=== PATIENT | female | born 1975 | race American Indian/Alaskan Native ===

== ENCOUNTER 2021-04-20 21:56 | Emergency (ER) | payer SELFPAY ==
[2021-04-20 23:14] LABS: Basophils # (Auto) 0.1 K/mm3 (0.0-0.1); Basophils % (Auto) 0.5 % (0.0-1.8); Eosinophils # (Auto) 0.1 K/mm3 (0.0-0.4); Hematocrit 30.3 % (30.3-42.9); Hemoglobin 9.1 gm/dl (10.1-14.3); Lymphocytes % (Auto) 17.1 % (13.4-35.0); Mean Corpuscular HGB Conc 30 % (30-34); Monocytes # (Auto) 0.8 K/mm3 (0.0-0.8); Monocytes % (Auto) 6.9 % (0.0-7.3); Platelet Count 379 K/mm3 (140-440); Red Blood Count 5.17 M/mm3 (3.65-5.03)
[2021-04-20 23:15] LABS: Mean Corpuscular Volume 59 fl (79-97)
[2021-04-20 23:38] LABS: Alanine Aminotransferase 38 units/L (7-56); Albumin 3.9 g/dL (3.9-5); Blood Urea Nitrogen 11 mg/dL (7-17); Calcium 8.7 mg/dL (8.4-10.2); Hemolysis Index 2
[2021-04-20 23:54] LABS: BUN/Creatinine Ratio 18
[2021-04-21] MEDS ORDERED: SODIUM CHLORIDE 0.9% 1000 ML 1,000 ML IV ONE (02:56)
--- NOTE | 2021-04-21 03:07 | Emergency Department Report ---
HPI - General Chief Complaint: Chest Pain Time Seen by Provider: 04/21/21 02:45 - HPI HPI: This is a 45-year-old -[place] female presents to the emergency department from home with a complaint of some palpitations, shakiness, and some generalized weakness that started this evening and woke her from sleep. She says that she felt like her heart is racing fast. She drank some water and says that it slowly started coming down again. She denies any chest pain, fever, lower extremity swelling, nausea, vomiting or diaphoresis. She did not take anything for her symptoms prior to presentation today. She has a past medical history of hypertension. She has been compliant with her amlodipine but ran out of her triamterene. She does not have a primary care physician. She denies any tobacco or illicit drug use. No recent travel or sick contacts at home. ED Past Medical Hx - Past Medical History Previous Medical History?: Yes Hx Hypertension: Yes - Surgical History Past Surgical History?: No - Social History Smoking Status: Never Smoker Substance Use Type: None - Medications Home Medications: Home Medications Medication Instructions Recorded Confirmed Last Taken Type Triamterene 50 mg PO QDAY #30 capsule 04/21/21 Unknown Rx ED Review of Systems ROS: Stated complaint: HEART RACING,SHAKY,DIZZY Other details as noted in HPI Comment: All other systems reviewed and negative Constitutional: weakness. denies: chills, fever Eyes: denies: eye pain, vision change ENT: denies: ear pain, throat pain Respiratory: denies: cough, shortness of breath Cardiovascular: palpitations. denies: chest pain, edema Gastrointestinal: denies: abdominal pain, vomiting Genitourinary: denies: dysuria, discharge Musculoskeletal: denies: back pain, arthralgia Skin: denies: rash, lesions Neurological: denies: headache, numbness Physical Exam - Physical Exam Physical Exam: GENERAL: The patient is well-developed well-nourished. HENT: Normocephalic. Atraumatic. Patient has moist mucous membranes. EYES: Extraocular motions are intact.. NECK: Supple. Trachea is midline. CHEST/LUNGS: Clear to auscultation. There is no respiratory distress noted. HEART/CARDIOVASCULAR: Regular. There is mild to moderate tachycardia. There is no murmur. ABDOMEN: Abdomen is soft, nontender. Patient has normal bowel sounds. There is no abdominal distention. SKIN: Skin is warm and dry. NEURO: The patient is awake, alert, and oriented. The patient is cooperative. The patient has no focal neurologic deficits. Normal speech. MUSCULOSKELETAL: There is no tenderness or deformity. There is no limitation range of motion. ED Medical Decision Making - Lab Data Result diagrams: 04/20/21 22:48 04/20/21 22:48 Lab Results 04/20/21 04/20/21 04/21/21 Range/Units 22:48 22:48 01:46 WBC 11.5 H (4.5-11.0) K/mm3 RBC 5.17 H (3.65-5.03) M/mm3 Hgb 9.1 L (10.1-14.3) gm/dl Hct 30.3 (30.3-42.9) % MCV 59 L (79-97) fl MCH 18 L (28-32) pg MCHC 30 (30-34) % RDW 21.0 H (13.2-15.2) % Plt Count 379 (140-440) K/mm3 Lymph % (Auto) 17.1 (13.4-35.0) % [place] % (Auto) 6.9 (0.0-7.3) % Eos % (Auto) 1.0 (0.0-4.3) % Baso % (Auto) 0.5 (0.0-1.8) % Lymph # (Auto) 2.0 (1.2-5.4) K/mm3 [place] # (Auto) 0.8 (0.0-0.8) K/mm3 Eos # (Auto) 0.1 (0.0-0.4) K/mm3 Baso # (Auto) 0.1 (0.0-0.1) K/mm3 Seg Neutrophils % 74.5 H (40.0-70.0) % Seg Neutrophils # 8.6 H (1.8-7.7) K/mm3 D-Dimer (0-234) ng/mlDDU Sodium 137 (137-145) mmol/L Potassium 4.0 (3.6-5.0) mmol/L Chloride 100.2 (98-107) mmol/L Carbon Dioxide 25 (22-30) mmol/L Anion Gap 16 mmol/L BUN 11 (7-17) mg/dL Creatinine 0.6 (0.6-1.2) mg/dL Estimated GFR > 60 ml/min BUN/Creatinine Ratio 18 % Glucose 148 H (65-100) mg/dL Calcium 8.7 (8.4-10.2) mg/dL Total Bilirubin 0.20 (0.1-1.2) mg/dL AST 29 (5-40) units/L ALT 38 (7-56) units/L Alkaline Phosphatase 84 (35-129) units/L Troponin T < 0.010 < 0.010 (0.00-0.029) ng/mL Total Protein 7.4 (6.3-8.2) g/dL Albumin 3.9 (3.9-5) g/dL Albumin/Globulin Ratio 1.1 % TSH (0.270-4.200) mlU/mL HCG, Qual (Negative) 04/21/21 04/21/21 04/21/21 Range/Units 01:46 03:02 03:02 WBC (4.5-11.0) K/mm3 RBC (3.65-5.03) M/mm3 Hgb (10.1-14.3) gm/dl Hct (30.3-42.9) % MCV (79-97) fl MCH (28-32) pg MCHC (30-34) % RDW (13.2-15.2) % Plt Count (140-440) K/mm3 Lymph % (Auto) (13.4-35.0) % [place] % (Auto) (0.0-7.3) % Eos % (Auto) (0.0-4.3) % Baso % (Auto) (0.0-1.8) % Lymph # (Auto) (1.2-5.4) K/mm3 [place] # (Auto) (0.0-0.8) K/mm3 Eos # (Auto) (0.0-0.4) K/mm3 Baso # (Auto) (0.0-0.1) K/mm3 Seg Neutrophils % (40.0-70.0) % Seg Neutrophils # (1.8-7.7) K/mm3 D-Dimer 381.02 H (0-234) ng/mlDDU Sodium (137-145) mmol/L Potassium (3.6-5.0) mmol/L Chloride (98-107) mmol/L Carbon Dioxide (22-30) mmol/L Anion Gap mmol/L BUN (7-17) mg/dL Creatinine (0.6-1.2) mg/dL Estimated GFR ml/min BUN/Creatinine Ratio % Glucose (65-100) mg/dL Calcium (8.4-10.2) mg/dL Total Bilirubin (0.1-1.2) mg/dL AST (5-40) units/L ALT (7-56) units/L Alkaline Phosphatase (35-129) units/L Troponin T (0.00-0.029) ng/mL Total Protein (6.3-8.2) g/dL Albumin (3.9-5) g/dL Albumin/Globulin Ratio % TSH 3.270 (0.270-4.200) mlU/mL HCG, Qual Negative (Negative) - EKG Data -: EKG Interpreted by Ga EKG shows normal: sinus rhythm (PACs), axis, intervals, QRS complexes, ST-T waves Rate: tachycardia (127 bpm) - EKG Data When compared to previous EKG there are: previous EKG unavailable Interpretation: other (Sinus rhythm at 127 bpm, PACs, no ST elevation HI.) - Radiology Data Radiology results: report reviewed CTA CHEST WITH IV CONTRAST INDICATION / CLINICAL INFORMATION: Chest palpitations, Elevated D-dimer. 'S TECHNIQUE: Axial CT images were obtained through the chest after injection of 100 cc Omnipaque 350 milligrams percent IV contrast. 3 plane MIP and/or 3D reconstructions were produced. All CT scans at this location are performed using CT dose reduction for ALARA by means of automated exposure control. COMPARISON: None available. FINDINGS: PULMONARY ARTERIES: Poor contrast enhancement of the pulmonary artery without obvious pulm onary embolic disease THORACIC AORTA: No significant abnormality. HEART: No significant abnormality. CORONARY ARTERIES: No significant calcification. PLEURA: No pleural effusion. No pneumothorax. LYMPH NODES: No significant adenopathy. LUNGS: No acute air space or interstitial disease. ADDITIONAL FI NDINGS: None. UPPER ABDOMEN: No acute findings. SKELETAL STRUCTURES: No significant osseous abnormality. IMPRESSION: 1. No CT evidence for pulmonary embolism. Please see comments 2. No acute findings. - Medical Decision Making This patient presents to the emergency department with a complaint of palpitations, some lightheadedness and generalized weakness. On examination she does have some mild to moderate tachycardia, but otherwise heart and lung sounds are normal to auscultation. She does not appear in any respiratory or acute distress. EKG shows some PACs and tachycardia, but there is no morphology consistent with ST elevation myocardial infarction. Chest x-ray did not show any pneumonia, pleural effusions, pneumothorax, widened mediastinum, or any other acute process. The patient's labs have been mostly unremarkable including CBC, metabolic panel, negative troponins x2, normal thyroid function, and the patient is not . She did have a slightly elevated and equivocal D-dimer level. For this reason the patient had a CT angiography of the chest that did not show any pulmonary embolism, dissection, or any other acute process. She was given some IV fluid resuscitation and a dose of IV analgesia. The blood pressure improved, and the tachycardia resolved, and the patient's symptoms have also currently resolved. Patient appears safe for discharge home at this time. She was given a prescription for her second blood pressure medication. She was given outpatient referrals for primary care and cardiology. She will return to the emergency department with any worsening of her symptoms or with any acute distress. Critical Care Time: No Critical care attestation.: If time is entered above; I have spent that time in minutes in the direct care of this critically ill patient, excluding procedure time. ED Disposition Clinical Impression: Palpitations Hypertension Qualifiers: Hypertension type: essential hypertension Qualified Code(s): I10 - Essential (primary) hypertension Disposition: DC- TO HOME OR SELFCARE Is pt being admited?: No Condition: Stable Instructions: Palpitations, Hypertension, Adult, Hypertension (ED) Additional Instructions: Please follow-up with a primary care physician in the next few days. I am giving you a referral for a local heavy cleaner, Dr. James, to follow-up regarding your hypertension and palpitations. Take all of your medications as prescribed. Keep a blood pressure log. Try to stay away from any excessive caffeine use. Please try to get at least 8 hours of uninterrupted sleep per night. Return to the emergency department with any worsening of your symptoms, new or concerning symptoms not addressed during this current emergency department visit, or with any acute distress. Prescriptions: Triamterene 50 mg PO QDAY #30 capsule Referrals: PRIMARY MD KLEVER [Primary Care Provider] - 3-5 Days SALVADOR PEREIRA MD [Staff Physician] - 3-5 Days RACQUEL JAMES MD [Staff Physician] - 3-5 Days Time of Disposition: 05:17
--- NOTE | 2021-04-21 03:23 | XRay Report ---
CHEST 1 VIEW INDICATION: SOB COMPARISON: FINDINGS: SUPPORT DEVICES: None. HEART / MEDIASTINUM: No significant abnormality. LUNGS / PLEURA: No significant pulmonary or pleural abnormality. No pneumothorax. ADDITIONAL FINDINGS: IMPRESSION: 1. No acute cardiopulmonary disease Signer Name: Madhav Russell MD Signed: 04/21/2021 3:19 AM Workstation Name: [id number]
--- NOTE | 2021-04-21 04:50 | Cat Scan Report ---
CTA CHEST WITH IV CONTRAST INDICATION / CLINICAL INFORMATION: Chest palpitations, Elevated D-dimer. 'S TECHNIQUE: Axial CT images were obtained through the chest after injection of 100 cc Omnipaque 350 milligrams pe rcent IV contrast. 3 plane MIP and/or 3D reconstructions were produced. All CT scans at this location are performed using CT dose reduction for ALARA by means of automated exposure control. COMPARISON: None available. FINDINGS: PULMONARY ARTERIES: Poor contrast enhancement of the pulmonary artery without obvious pulmonary embol ic disease THORACIC AORTA: No significant abnormality. HEART: No significant abnormality. CORONARY ARTERIES: No significant calcification. PLEURA: No pleural effusion. No pneumothorax. LYMPH NODES: No significant adenopathy. LUNGS: No acute air space or interstitial disease. ADDITIONAL FINDINGS: None. UPPER ABDOMEN: No acute findings. SKELETAL STRUCTURES: No significant osseous abnormality. IMPRESSION: 1. No CT evidence for pulmonary embolism. Please see comments 2. No acute findings. Signer Name: Madhav Russell MD Signed: 04/21/2021 4:46 AM Workstation Name: [id number]
[2021-04-21 05:41] VITALS: BP 134/73
--- NOTE | 2021-04-21 10:22 | Electrocardiograph Report ---
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
== END 2021-04-21 05:48 | disposition home or self-care (01) ==
LOC: ED 21:56
DX: R00.2 Palpitations (principal); I10 Essential (primary) hypertension; Z79.899 Other long term (current) drug therapy
CPT/HCPCS: 36415; 71045; 71275; 80053; 84443; 84484; 84703; 85025; 85379; 93005; 96361; 96374; 99284; J7030; Q9967